=== PATIENT | female | born 1960 | race Caucasian/White ===

== ENCOUNTER 2017-07-15 20:25 | Emergency (ER) | payer MEDICAID ==
[~2017-07-15] VITALS: Ht 172.7 cm; Wt 76.9 kg
[~2017-07-15 20:25] MED LIST: FLUO40CA9 PO; HYDR-3237 PO; NICO-487 TD; ONDA4TAB13 PO; POTA10TA11 PO; VANC1VIA3 PO
[2017-07-15 20:27] VITALS: BP 142/82
[2017-07-15] MEDS ORDERED: CEFAZOLIN 1,000 MG ONE (21:21)
[2017-07-15] MEDS ORDERED: CEFAZOLIN 1,000 MG IM ONE (21:30)
[2017-07-15] MEDS ORDERED: PLEASE ENTER ALLERGIES MC SCH (21:30)
== END 2017-07-15 22:07 | disposition home or self-care (01) ==
LOC: ED 21:19
DX: S92.515A Nondisplaced fracture of proximal phalanx of left lesser toe(s), initial encounter for closed fracture (principal); S81.051A Open bite, right knee, initial encounter; L03.115 Cellulitis of right lower limb; L03.116 Cellulitis of left lower limb; W54.0XXA Bitten by dog, initial encounter; Y93.89 Activity, other specified; Y92.89 Other specified places as the place of occurrence of the external cause; Y99.8 Other external cause status
CPT/HCPCS: 73564; 73630; 96372; 99284; J0690

== ENCOUNTER 2019-03-24 07:03 | Emergency (ER) | payer MEDICAID ==
[~2019-03-24] VITALS: Ht 172.7 cm; Wt 71.2 kg
[~2019-03-24 07:03] MED LIST changes: +AZIT250T89 PO; +CEFD300C37 PO; +IBUP-1221 PO
[2019-03-24] MEDS ORDERED: LIDOCAINE-MPF 1%, 5ML INFIL ONE (07:30)
[2019-03-24] MEDS ORDERED: ANTIDEPRESSANT (07:38)
[2019-03-24 07:39] VITALS: BP 110/61
--- NOTE | 2019-03-24 07:41 | NUR ---
PT AMBULATORY TO ROOM. JAVIER. STATES SHE HAS ABSCESS ON BACK OF HER NECK THAT SHE THOUGHT WAS AN INGROWN HAIR. VSS. CALL LIGHT IN REACH. I&D TRAY SET UP FOR .
== END 2019-03-24 08:17 | disposition home or self-care (01) ==
LOC: ED 08:00
DX: L02.11 Cutaneous abscess of neck (principal)
CPT/HCPCS: 10060; 99283

== ENCOUNTER 2019-10-23 14:29 | Emergency (ER) | payer SELFPAY ==
[~2019-10-23] VITALS: Ht 172.7 cm; Wt 78.7 kg
[~2019-10-23 14:29] MED LIST changes: +ANTIDEPRESSANT
--- NOTE | 2019-10-23 14:34 | NUR ---
NO ANSWER FROM [facility] @[id number]
--- NOTE | 2019-10-23 15:56 | NUR ---
PT TO ROOM
--- NOTE | 2019-10-23 16:03 | NUR ---
Pt here for loose diarreah. Pt reports she has been ill for few days. Pt reports not wanting to eat things because she has instant stools after eating. Pt connected to monitors and call light in reach. vss
[2019-10-23 16:16] LABS: BASOPHILS # (AUTO) 0.02 x10^3/uL (0-0.1); BASOPHILS % (AUTO) 0 % (0-1); EOSINOPHILS # (AUTO) 0.03 x10^3/uL (0-0.4); EOSINOPHILS % (AUTO) 1 % (1-7); LYMPHOCYTES # (AUTO) 1.27 x10^3/uL (1-3.4); LYMPHOCYTES % (AUTO) 19 % (22-44); MD NO; MEAN CORPUSCULAR HEMOGLOBIN 29.8 pg (27.0-34.8); MEAN CORPUSCULAR VOLUME 90.3 fL (80-100); MEAN PLATELET VOLUME 7.2 fL (7.4-10.4); MONOCYTES # (AUTO) 1.02 x10^3/uL (0.2-0.8); MONOCYTES % (AUTO) 15 % (2-9); NEUTROPHILS # (AUTO) 4.53 x10^3/uL (1.8-6.8); NEUTROPHILS % (AUTO) 66 % (42-75); PLATELET COUNT 352 x10^3/uL (130-400); RED CELL DISTRIBUTION WIDTH 14.9 % (9.6-15.2)
[2019-10-23 16:29] LABS: ALANINE AMINOTRANSFERASE 22 U/L (12-78); ALBUMIN 3.3 g/dL (3.4-5.0); ANION GAP 7 mmol/L (5-15); CHLORIDE 109 mmol/L (98-107); CREATININE 1.08 mg/dL (0.55-1.02)
[2019-10-23 16:31] LABS: ALKALINE PHOSPHATASE 89 U/L (45-117); BILIRUBIN,TOTAL 0.2 mg/dL (0.2-1.0)
[2019-10-23 17:39] VITALS: BP 122/80
[2019-10-23 18:11] LABS: CLOSTRIDIUM DIFFICILE ANTIGEN NEGATIVE; CLOSTRIDIUM DIFFICILE TOXIN NEGATIVE (Negative)
--- NOTE | 2019-10-23 18:11 | NUR ---
ALL RESULTS BACK AT THIS TIME, CHART UP FOR RECHECK.
--- NOTE | 2019-10-23 19:26 | NUR ---
Patient/Caregiver given discharge instructions and they have confirmed that they understand the instructions. Patient ambulatory with steady gait.
== END 2019-10-23 19:28 | disposition home or self-care (01) ==
LOC: ED 16:39
DX: N28.9 Disorder of kidney and ureter, unspecified (principal); R19.7 Diarrhea, unspecified; R11.10 Vomiting, unspecified
CPT/HCPCS: 36415; 71045; 80053; 85025; 87324; 99284

== ENCOUNTER 2020-04-21 09:30 | Emergency (ER) | payer MEDICAID ==
[~2020-04-21] VITALS: Ht 172.7 cm; Wt 83.3 kg
[2020-04-21] MEDS ORDERED: FLUORESCEIN OPHTHALMIC 1 MG STRIP EACHEYE ONE (10:00)
[2020-04-21] MEDS ORDERED: PROPARACAINE OPHTH 0.5%, 15ML EACHEYE ONE (10:00)
[2020-04-21] MEDS ORDERED: FLUORESCEIN OPHTHALMIC 1 MG STRIP ONE (10:32)
[2020-04-21] MEDS ORDERED: PROPARACAINE OPHTH 0.5%, 15ML ONE (10:33)
[2020-04-21 11:11] VITALS: BP 133/85
== END 2020-04-21 11:15 | disposition home or self-care (01) ==
LOC: ED 11:11
DX: H10.11 Acute atopic conjunctivitis, right eye (principal)
CPT/HCPCS: 99283

== ENCOUNTER → 2021-02-04 | Outpatient (CLI) | payer MEDICAID ==
[~2021-02-04] MED LIST changes: -NICO-487 TD; +NICO-587 TD; -VANC1VIA3 PO; +VANC1VIA36 PO
[2021-02-04 11:39] LABS: BASOPHILS % (AUTO) 1 % (0-1); EOSINOPHILS % (AUTO) 2 % (1-7); LYMPHOCYTES % (AUTO) 30 % (22-44); MEAN CORPUSCULAR HEMOGLOBIN 29.8 pg (27.0-34.8); MEAN CORPUSCULAR HGB CONC 33.2 g/dL (32.4-35.8); MEAN PLATELET VOLUME 6.8 fL (7.4-10.4); MONOCYTES % (AUTO) 9 % (2-9); NEUTROPHILS % (AUTO) 59 % (42-75); PLATELET COUNT 338 x10^3/uL (130-400); RED BLOOD COUNT 4.04 x10^6/uL (3.82-5.3); RED CELL DISTRIBUTION WIDTH 14.9 % (9.6-15.2)
[2021-02-04 11:43] LABS: MD NO
[2021-02-04 11:48] LABS: ALANINE AMINOTRANSFERASE 23 U/L (12-78); ALBUMIN 3.4 g/dL (3.4-5.0); ANION GAP 7 mmol/L (5-15); CALCIUM 8.3 mg/dL (8.5-10.1); CHLORIDE 104 mmol/L (98-107); CREATININE 0.74 mg/dL (0.55-1.02)
[2021-02-04 11:50] LABS: ALKALINE PHOSPHATASE 87 U/L (45-117); BILIRUBIN,TOTAL 0.2 mg/dL (0.2-1.0); TOTAL PROTEIN 7.5 g/dL (6.4-8.2)
== END | disposition home or self-care (01) ==
LOC: STAR 10:35
PROVIDERS: ATTEND Orthopaedic Surgery
DX: Z01.812 Encounter for preprocedural laboratory examination (principal); Z20.822 Contact with and (suspected) exposure to COVID-19; M16.11 Unilateral primary osteoarthritis, right hip
CPT/HCPCS: 36415; 71046; 80053; 85025; 87081; 87147; 93005; U0003

== ENCOUNTER 2021-02-10 10:20 | Observation (INO) | payer MEDICAID ==
[~2021-02-10] VITALS: Ht 172.7 cm; Wt 96.1 kg
[2021-02-10] MEDS ORDERED: MIDAZOLAM 1 MG/ML, 2ML ONE (11:27)
[2021-02-10] MEDS ORDERED: FENTANYL PF 250 MCG/5ML ONE (11:27)
[2021-02-10] MEDS ORDERED: CHLORHEXIDINE 15 ML UDC PO ONE (11:30)
[2021-02-10] MEDS ORDERED: SCOPOLAMINE 1MG PATCH TD ONE (11:34)
[2021-02-10] MEDS: LACTATED RINGERS 1,000 ML IV SCH (11:37)
[2021-02-10] MEDS: SCOPOLAMINE 1MG PATCH TD SCH (11:38)
[2021-02-10] MEDS ORDERED: KETOROLAC 60 MG/2 ML ONE (11:54)
[2021-02-10] MEDS ORDERED: TRANEXAMIC ACID 100 MG/ML, 10ML ONE (11:54)
[2021-02-10] MEDS ORDERED: EPINEPHRINE 1 MG/ML, 1ML ONE (11:55)
[2021-02-10] MEDS ORDERED: ROPIvacaine/PF 0.5%, 20 ML ONE (11:55)
[2021-02-10] MEDS ORDERED: SODIUM CHLORIDE 0.9% 50 ML ONE (11:55)
[2021-02-10] MEDS ORDERED: PHENYLEPHRINE 10 MG/ML ONE (12:22)
[2021-02-10] MEDS ORDERED: PROMETHAZINE 25 MG/ML, 1ML IVPush PRN (13:00)
[2021-02-10] MEDS ORDERED: LABETALOL 5MG/ML, 20ML IV PRN (13:00)
[2021-02-10] MEDS ORDERED: HYDROmorphone 1 MG/ML, 1ML INJ IVPush PRN (13:00)
[2021-02-10] MEDS ORDERED: ACETAMINOPHEN 325 MG TABLET PO PRN (13:00)
[2021-02-10] MEDS ORDERED: OXYcodone 5 MG/5 ML ORAL.SOL UDC PO PRN (13:00)
[2021-02-10] MEDS ORDERED: ALBUTEROL SULFATE 2.5 MG/3 ML NPPB PRN (13:00)
[2021-02-10] MEDS ORDERED: MEPERIDINE/PF 25MG/0.5ML IVPush PRN (13:00)
[2021-02-10] MEDS ORDERED: LORazepam 2 MG/ML, 1ML IVPush PRN (13:00)
[2021-02-10] MEDS ORDERED: GLYCOPYRROLATE 0.2MG/1ML, 5ML ONE (13:50)
[2021-02-10] MEDS ORDERED: CEFAZOLIN 1,000 MG ONE (13:50)
[2021-02-10] MEDS ORDERED: ONDANSETRON 2MG/ML, 2ML ONE (13:50)
[2021-02-10] MEDS ORDERED: NEOSTIGMINE 1 MG/ML, 10ML ONE (13:50)
[2021-02-10] MEDS ORDERED: DEXAMETHASONE 4 MG/ML, 1ML ONE (13:50)
[2021-02-10] MEDS ORDERED: LIDOCAINE-MPF 2% ,5ML ONE (13:50)
[2021-02-10] MEDS ORDERED: ROCURONIUM 10MG/ML,5ML ONE (13:50)
[2021-02-10] MEDS ORDERED: PROPOFOL 10 MG/ML, 20ML ONE (13:50)
[2021-02-10] MEDS ORDERED: METHOCARBAMOL 1,000 MG in DEXTROSE 5% 100 ML IV ONE (14:00)
[2021-02-10] MEDS ORDERED: TRANEXAMIC ACID 1,000 MG in SODIUM CHLORIDE 0.9% 100 ML IVPB ONE (14:00)
[2021-02-10] MEDS ORDERED: ONDANSETRON 4 MG TABLET PO PRN (14:00)
[2021-02-10] MEDS: FENTANYL PF 100 MCG/2ML IV PRN ×2 (14:05→14:25)
[2021-02-10] MEDS ORDERED: ACETAMINOPHEN 650 MG/20.3 ML UDC ONE (14:10)
[2021-02-10] MEDS ORDERED: FENTANYL PF 100 MCG/2ML ONE (14:10)
[2021-02-10] MEDS ORDERED: OXYcodone 5 MG/5 ML ORAL.SOL UDC ONE (14:10)
[2021-02-10] MEDS ORDERED: HYDROmorphone 1 MG/ML, 1ML INJ ONE (14:51)
[2021-02-10] MEDS: HYDROmorphone 1 MG/ML, 1ML INJ IV PRN (14:52)
[2021-02-10] MEDS: OXYcodone IR 5MG TABLET PO PRN ×2 (18:14→21:55)
[2021-02-10 18:32] VITALS: BP 119/79
[2021-02-10] MEDS: DOCUSATE 100 MG CAPSULE PO SCH (20:49)
[2021-02-10] MEDS: CEFAZOLIN PMX 1GM/50ML 50 ML IVPB SCH (22:38)
[2021-02-11 00:24] VITALS: BP 100/68
[2021-02-11] MEDS: OXYcodone IR 5MG TABLET PO PRN ×5 (02:39→23:17)
[2021-02-11] MEDS: HYDROmorphone 1 MG/ML, 1ML INJ IV PRN ×3 (04:52→20:53)
[2021-02-11 05:05] VITALS: BP 106/69
[2021-02-11] MEDS: CEFAZOLIN PMX 1GM/50ML 50 ML IVPB SCH (06:07)
[2021-02-11] MEDS: DOCUSATE 100 MG CAPSULE PO SCH ×2 (08:08→20:53)
[2021-02-11 08:10] VITALS: BP 99/65
[2021-02-11] MEDS: LACTATED RINGERS 1,000 ML IV SCH (09:37)
[2021-02-11 12:06] VITALS: BP 111/70
[2021-02-11] MEDS: ASPIRIN 81 MG TABLET EC PO SCH (17:22)
[2021-02-11 18:46] VITALS: BP 113/73
[2021-02-12 01:03] VITALS: BP 137/78
[2021-02-12] MEDS: OXYcodone IR 5MG TABLET PO PRN ×5 (03:11→21:00)
[2021-02-12] MEDS: ASPIRIN 81 MG TABLET EC PO SCH ×2 (06:06→18:02)
[2021-02-12 06:59] VITALS: BP 107/70
[2021-02-12] MEDS: DOCUSATE 100 MG CAPSULE PO SCH ×2 (07:15→21:00)
[2021-02-12 12:40] VITALS: BP 110/73
[2021-02-12 19:47] VITALS: BP 99/67
[2021-02-13 00:42] VITALS: BP 122/73
[2021-02-13] MEDS: OXYcodone IR 5MG TABLET PO PRN ×4 (01:42→15:28)
[2021-02-13] MEDS: ASPIRIN 81 MG TABLET EC PO SCH ×2 (06:41→17:21)
[2021-02-13] MEDS: DOCUSATE 100 MG CAPSULE PO SCH (07:19)
[2021-02-13 07:22] VITALS: BP 99/65
[2021-02-13 07:32] VITALS: BP 89/60
[2021-02-13] MEDS: SCOPOLAMINE 1MG PATCH TD SCH (10:49)
[2021-02-13] MEDS ORDERED: ASPI81TA45 PO (12:13)
[2021-02-13] MEDS ORDERED: DOCU-131 PO (12:13)
[2021-02-13] MEDS ORDERED: OXYC5TAB98 PO (12:13)
[2021-02-13 13:10] VITALS: BP 105/65
[2021-02-13] MEDS ORDERED: BISACODYL 10 MG SUPP ONE (16:12)
[2021-02-13] MEDS ORDERED: BISACODYL 10 MG SUPP PR PRN (16:30)
== END 2021-02-13 18:00 ==
LOC: OUT 10:20 → ORIP 13:57 → 4NE 15:35
PROVIDERS: ADMIT Orthopaedic Surgery; ATTEND Orthopaedic Surgery
DX: M16.11 Unilateral primary osteoarthritis, right hip (principal); B19.20 Unspecified viral hepatitis C without hepatic coma; M21.70 Unequal limb length (acquired), unspecified site; K21.9 Gastro-esophageal reflux disease without esophagitis; F17.200 Nicotine dependence, unspecified, uncomplicated; Z79.899 Other long term (current) drug therapy; Z96.641 Presence of right artificial hip joint
CPT/HCPCS: 27130; 36415; 73502; 86850; 86900; 96361; 96365; 96366; 96375; 96376; 97110; 97116; 97162; 97167; 97530; C1713; C1776; G0378; J0171; J0690; J1100; J1170; J1885; J2250; J2370; J2405; J2704; J2710; J2795; J2800; J3010; J3490; J7120

== ENCOUNTER 2021-07-02 12:42 | Emergency (ER) | payer MEDICAID ==
[~2021-07-02] VITALS: Ht 172.7 cm; Wt 85.4 kg
[2021-07-02 16:04] VITALS: BP 113/63
== END 2021-07-02 16:32 | disposition home or self-care (01) ==
LOC: ED 15:30
DX: S39.012A Strain of muscle, fascia and tendon of lower back, initial encounter (principal); M51.36 Other intervertebral disc degeneration, lumbar region; M62.830 Muscle spasm of back; F17.210 Nicotine dependence, cigarettes, uncomplicated
CPT/HCPCS: 72110; 96372; 99283; 99406; J1885